=== PATIENT | male | born 1980 | race Caucasian/White ===

== ENCOUNTER 2018-11-21 03:47 | Emergency (ER) | payer MEDICAID, SELFPAY ==
[2018-11-21 03:47] VITALS: BP 147/76; PULSE 73; RESP 18; TEMP 36.9; O2SAT 98; BMI 36.6
--- NOTE | 2018-11-21 03:57 | ED.VIS.GEN ---
History of Present Illness Chief Complaint: Ear Problem Informant: Patient Narrative: Presents with right-sided ear pain since yesterday. He is been using Tylenol intermittently. Comes in for further evaluation. Thought he may have swimmer's ear. It does not hurt to pull on his ear. No history of frequent otitis media. Current severity is moderate. Difficulty sleeping tonight so he came in. Past Medical History - Allergies and Home Meds Allergies/Adverse Reactions: Allergies No Known Allergies Allergy (Verified 02/24/18 03:26) Primary Care Physician: Care Physician,No Primary [Primary Care Provider] - Prior records reviewed: Yes Past Medical History: - - Viewed Surgical History: noncontributory Smoking Status: Current every day smoker Alcohol: None Drugs: None Review of Systems General: Denies: Chills, Fever, Sweats Eyes: Denies: Visual changes - bilaterally, Diplopia ENT: Reports: Right ear pain. Denies: Rhinorrhea, Sore throat Cardiovascular: Denies: Chest pain, Palpitations Respiratory: Denies: Dyspnea, Cough, Dyspnea on exertion Gastrointestinal: Denies: Abdominal pain, Nausea, Vomiting, Diarrhea, Melena, Hematochezia Genitourinary: Denies: Dysuria, Hematuria, Frequency Musculoskeletal: Denies: Back pain, Extremity Pain Skin: Denies: Rash, Wounds Neurological: Denies: Headache, Weakness, Numbness Physical Exam Vital Signs/Narrative: Vital Signs Temp Pulse Resp BP Pulse Ox 11/21/18 03:47 98.4 F 73 18 147/76 H 98 General: Well nourished, Well developed, No Acute Distress Head: Normocephalic, Atraumatic Eyes: Perrl, EOMI ENT: Moist mucous membranes, No rhinorrhea, - - Right TM with dullness redness and decreased landmarks. Neck: Supple, Nontender Cardiovascular: Regular rate, Regular rhythm, No murmurs Respiratory: No distress, CTA bilaterally, Chest nontender Abdomen: Soft, Nontender, Nondistended, Normal bowel sounds Back: Nontender, Normal Inspection Extremities: Nontender, No edema Skin: Normal color, No rash Neurological: Alert, Oriented x3, Cranial nerves II-XII grossly intact, Normal Strength, Normal Sensation Psychological: Normal affect, Normal Mood Diagnostic/Tx/Re-eval - Medical Decision Making he has acute otitis media. Given amoxicillin and ibuprofen. We will follow-up as an outpatient. ED Disposition - Plan for ED Patient: Disposition: Home or Assisted Living Diagnosis: Acute right otitis media Instructions: OTITIS MEDIA, Abx Tx (Adult) Prescriptions: Amoxicillin 500 mg PO TID #20 tab Prescription Printed Referrals: Care Physician,No Primary [Primary Care Provider] - Kel Sparks DO [NON CLINICAL AFFILIATE] -
[2018-11-21 04:21] VITALS: BP 122/84; PULSE 82; RESP 17; O2SAT 97
[2018-11-21] MEDS: Ibuprofen 400 MG Tablet 800 MG PO (04:21)
[2018-11-21] MEDS: AMOXICILLIN 500 MG CAPSULE PO (04:21)
== END 2018-11-21 04:24 | disposition home or self-care (01) ==
LOC: ED 04:17
PROVIDERS: Emergency Provider Emergency Medicine
DX: H66.91 Otitis media, unspecified, right ear (principal); F17.200 Nicotine dependence, unspecified, uncomplicated
CPT/HCPCS: 99283

== ENCOUNTER 2020-03-26 18:07 | Emergency (ER) | payer MEDICAID, SELFPAY ==
[2020-03-26 18:09] VITALS: BP 143/85; PULSE 87; RESP 16; TEMP 36; O2SAT 100; BMI 34.0
--- NOTE | 2020-03-26 18:39 | ED.DCSUM_ITS ---
- ER Visit Summary Date of Service: 03/26/20 Chief Complaint: Right ear pain History of Present Illness: The patient is a 39 M who presents with right ear pain that is been getting worse over the past week. Patient describes his pain is sharp. Patient states the pain is localized to his right ear. Patient states the pain is worse when he is outside in the cold. Patient states nothing seems to help. Patient denies any hearing loss. Patient denies any dizziness or spinning sensation. Patient denies any fevers or chills. Patient denies any sore throat or cough. Patient denies any chest pain or shortness of breath. Physical Examination: Vital signs are stable. Patient is afebrile. Patient is in no acute distress. Oral mucosa is pink and moist. Neck is supple. Trachea is midline. There is no JVD or lymphadenopathy. The right tympanic membrane shows a mild effusion but there is no erythema. The external auditory canals are clear bilaterally. The left tympanic membrane is clear. Heart was regular rate and rhythm. Lungs are clear and equal bilaterally. Cranial nerves II through XII are intact. There are no focal motor or sensory deficits. Emergency Department Course and Treatment: Patient was advised that this is most likely from the fluid in his right middle ear. Patient was given prescriptions for Sudafed and Flonase. Patient was instructed to follow-up with a primary care physician in 5 to 7 days. Patient was given a referral to primary care physician on-call. Patient understood and was agreeable with the plan. All questions were answered. Disposition: Discharge home Impression: Right serous otitis media This note was generated with [employer] dictation software. It may contain incorrect words, spelling, and punctuation that were not noted in review of the chart prior to signing ED Disposition - Plan for ED Patient: Disposition: Home or Assisted Living Diagnosis: Right serous otitis media Instructions: ED SEROUS OTITIS MEDIA Adult Prescriptions: Fluticasone 0.05% [Flonase Nasal [place]] 2 spray NASAL DAILY #1 bottle Transmission Status: Pending to [facility] Pseudoephedrine HCl [Sudafed 12 Hour] 120 mg PO Q12H PRN PRN #20 tablet.er PRN Reason: Congestion Transmission Status: Pending to [facility] Referrals: Albert Terrell MD [NON-STAFF] -
== END 2020-03-26 19:02 | disposition home or self-care (01) ==
LOC: ED 18:58
PROVIDERS: Emergency Provider Emergency Medicine
DX: H65.91 Unspecified nonsuppurative otitis media, right ear (principal); F17.210 Nicotine dependence, cigarettes, uncomplicated
CPT/HCPCS: 99281